=== PATIENT | female | born 1980 | race Caucasian/White ===

== ENCOUNTER 2016-07-03 | Outpatient (CLI) | payer MEDICARE, OTHER | END 2016-07-03 17:16 | disposition home or self-care (01) | CPT/HCPCS: 59025; G0463; 99213 ==

== ENCOUNTER 2017-10-21 08:27 | Emergency (ER) | payer MEDICARE, OTHER ==
[2017-10-21 08:31] VITALS: RESP 18; TEMP 98
[2017-10-21] MEDS ORDERED: SODIUM CHLORIDE 0.9% 1,000 ML IV STA (08:44)
[2017-10-21] MEDS ORDERED: ONDANSETRON 4 MG/2 ML VIAL IVP STA (08:44)
[2017-10-21 08:47] VITALS: PULSE 66
[2017-10-21 08:59] LABS: Basophils % (A) 1 %; Eosinophils # (A) 0.1 k/uL (0-0.7); Eosinophils % (A) 2 %; HCT 38.3 % (34.0-46.0); HGB 13.2 gm/dL (11.4-16.0); Lymphocytes % (A) 41 %; MCH 30.3 pg (25.0-35.0); MCHC 34.4 g/dL (31.0-37.0); MCV 88.2 fL (80.0-100.0); Mean Platelet Volume 7.2; Monocytes # (A) 0.4 k/uL (0-1.0); Monocytes % (A) 6 %; Neutrophils # (A) 3.6 k/uL (1.3-7.7); Neutrophils % (A) 49 %; Platelet Count 337 k/uL (150-450); RBC 4.34 m/uL (3.80-5.40); RDW 13.1 % (11.5-15.5); WBC 7.4 k/uL (3.8-10.6)
[2017-10-21 09:05] LABS: ALT 46 U/L (9-52); AST 54 U/L (14-36); Albumin 4.4 g/dL (3.5-5.0); Alkaline Phosphatase 78 U/L (38-126); Amylase 62 U/L (30-110); Anion Gap 13 mmol/L; Appearance,Urine Cloudy (Clear); Bacteria,Urine Rare /hpf; Bilirubin,Urine Negative (Negative); Blood Urea Nitrogen 10 mg/dL (7-17); Blood,Urine Negative (Negative); Calcium 9.2 mg/dL (8.4-10.2); Carbon Dioxide 25 mmol/L (22-30); Chloride 103 mmol/L (98-107); Color,Urine Yellow; Glucose 93 mg/dL (74-99); Glucose,Urine (UA) Negative (Negative); Ketones,Urine Negative (Negative); Leukocyte Esterase,Urine Small (Negative); Lipase 80 U/L (23-300); Mucus,Urine Rare /hpf; Nitrite,Urine Negative (Negative); PH, Urine 7.5 (5.0-8.0); Potassium 4.1 mmol/L (3.5-5.1); Protein,Urine Negative (Negative); RBC,Urine 1 /hpf (0-5); Sodium 141 mmol/L (137-145); Specific Gravity,Urine 1.016 (1.001-1.035); Squamous Epithelial Cell,Urine 12 /hpf (0-4); Total Bilirubin 0.6 mg/dL (0.2-1.3); Total Protein 7.8 g/dL (6.3-8.2); WBC,Urine 2 /hpf (0-5)
[2017-10-21 09:55] VITALS: BP 123/74
--- NOTE | 2017-10-21 10:16 | ED ---
Nausea/Vomiting/Diarrhea HPI - General Chief complaint: Nausea/Vomiting/Diarrhea Stated complaint: Nausea & Shaky Time Seen by Provider: 10/21/17 08:43 Source: patient, RN notes reviewed Mode of arrival: ambulatory Limitations: no limitations - History of Present Illness Initial comments: 37-year-old female presented to the emergency department for nausea, shakiness. Patient states she woke up felt shaky and states that she vomited. She's been having these symptoms on and off. She was told to follow-up with her PCP but has not followed up. She does have a history of hypothyroidism and states that she stopped her medication prostate 3 years ago. Patient denies any known fever, chills, chest pain, shortness breath, abdominal pain. Patient has no current headache. She states she felt lightheaded earlier. Patient denies any focal weakness. Patient states she feels improved now even prior to coming to the emergency Department. - Related Data Previous Rx's Medication Instructions Recorded Ondansetron Odt [Zofran Odt] 4 mg PO Q8HR PRN #10 tab 10/21/17 Allergies Allergy/AdvReac Type Severity Reaction Status Date / Time No Known Allergies Allergy Verified 10/21/17 09:48 Review of Systems ROS Statement: Those systems with pertinent positive or pertinent negative responses have been documented in the HPI. ROS Other: All systems not noted in ROS Statement are negative. Past Medical History Past Medical History: Hypertension History of Any Multi-Drug Resistant Organisms: None Reported Past Surgical History: No Surgical Hx Reported Past Psychological History: Bipolar, Depression Smoking Status: Current every day smoker Past Alcohol Use History: None Reported Past Drug Use History: None Reported General Exam Limitations: no limitations General appearance: alert, in no apparent distress Head exam: Present: atraumatic, normocephalic, normal inspection Eye exam: Present: normal appearance, PERRL, EOMI. Absent: scleral icterus, conjunctival injection, periorbital swelling ENT exam: Present: normal exam, normal oropharynx, mucous membranes moist Neck exam: Present: normal inspection. Absent: tenderness, meningismus, lymphadenopathy Respiratory exam: Present: normal lung sounds bilaterally. Absent: respiratory distress, wheezes, rales, rhonchi, stridor Cardiovascular Exam: Present: regular rate (Heart rate 62 on exam), normal rhythm, normal heart sounds. Absent: systolic murmur, diastolic murmur, rubs, gallop, clicks GI/Abdominal exam: Present: soft, normal bowel sounds. Absent: distended, tenderness, guarding, rebound, rigid Extremities exam: Present: other (Normal strength and full range of motion of all extremities no tremor) Neurological exam: Present: alert, oriented X3, CN II-XII intact, reflexes normal, other (Finger to nose intact bilaterally without over shooting normal Romberg). Absent: motor sensory deficit Skin exam: Present: warm, dry, intact, normal color. Absent: rash Course Vital Signs 10/21/17 10/21/17 10/21/17 08:27 08:44 09:53 Temperature 98 F 98 F Pulse Rate 41 L 66 66 Respiratory 18 18 Rate Blood Pressure 146/70 123/74 O2 Sat by Pulse 94 L 99 97 Oximetry Medical Decision Making - Medical Decision Making 29-year-old female presented for nausea, vomiting shaky. Patient was improved prior to even come the emergency department. Patient was hydrated given antiemetics. Patient had lab work which is unremarkable. There is no evidence of dehydration, electrolyte imbalances, hyperthyroidism. Patient may have had a hypoglycemic event as his hadn't been recurrent. Patient we discharged with Zofran for her nausea. She does state that she feels improved. She is advised follow-up with PCP tomorrow return for any worsening symptoms. - Lab Data Result diagrams: 10/21/17 08:40 10/21/17 08:40 Lab Results 10/21/17 10/21/17 10/21/17 Range/Units 08:40 08:40 08:40 WBC 7.4 (3.8-10.6) k/uL RBC 4.34 (3.80-5.40) m/uL Hgb 13.2 (11.4-16.0) gm/dL Hct 38.3 (34.0-46.0) % MCV 88.2 (80.0-100.0) fL MCH 30.3 (25.0-35.0) pg MCHC 34.4 (31.0-37.0) g/dL RDW 13.1 (11.5-15.5) % Plt Count 337 (150-450) k/uL Neutrophils % 49 % Lymphocytes % 41 % Monocytes % 6 % Eosinophils % 2 % Basophils % 1 % Neutrophils # 3.6 (1.3-7.7) k/uL Lymphocytes # 3.0 (1.0-4.8) k/uL Monocytes # 0.4 (0-1.0) k/uL Eosinophils # 0.1 (0-0.7) k/uL Basophils # 0.0 (0-0.2) k/uL Sodium 141 (137-145) mmol/L Potassium 4.1 (3.5-5.1) mmol/L Chloride 103 (98-107) mmol/L Carbon Dioxide 25 (22-30) mmol/L Anion Gap 13 mmol/L BUN 10 (7-17) mg/dL Creatinine 0.61 (0.52-1.04) mg/dL Est GFR (CKD-EPI)AfAm >90 (>60 ml/min/1.73 sqM) Est GFR (CKD-EPI)NonAf >90 (>60 ml/min/1.73 sqM) Glucose 93 (74-99) mg/dL Calcium 9.2 (8.4-10.2) mg/dL Total Bilirubin 0.6 (0.2-1.3) mg/dL AST 54 H (14-36) U/L ALT 46 (9-52) U/L Alkaline Phosphatase 78 (38-126) U/L Total Protein 7.8 (6.3-8.2) g/dL Albumin 4.4 (3.5-5.0) g/dL Amylase 62 (30-110) U/L Lipase 80 (23-300) U/L TSH (0.465-4.680) mIU/L Urine Color Urine Appearance (Clear) Urine pH (5.0-8.0) Ur Specific [place] (1.001-1.035) Urine Protein (Negative) Urine Glucose (UA) (Negative) Urine Ketones (Negative) Urine Blood (Negative) Urine Nitrite (Negative) Urine Bilirubin (Negative) Urine Urobilinogen (<2.0) mg/dL Ur Leukocyte Esterase (Negative) Urine RBC (0-5) /hpf Urine WBC (0-5) /hpf Ur Squamous Epith Cells (0-4) /hpf Urine Bacteria (None) /hpf Urine Mucus (None) /hpf Urine HCG, Qual Not Detected (Not Detectd) 10/21/17 10/21/17 Range/Units 08:40 08:40 WBC (3.8-10.6) k/uL RBC (3.80-5.40) m/uL Hgb (11.4-16.0) gm/dL Hct (34.0-46.0) % MCV (80.0-100.0) fL MCH (25.0-35.0) pg MCHC (31.0-37.0) g/dL RDW (11.5-15.5) % Plt Count (150-450) k/uL Neutrophils % % Lymphocytes % % Monocytes % % Eosinophils % % Basophils % % Neutrophils # (1.3-7.7) k/uL Lymphocytes # (1.0-4.8) k/uL Monocytes # (0-1.0) k/uL Eosinophils # (0-0.7) k/uL Basophils # (0-0.2) k/uL Sodium (137-145) mmol/L Potassium (3.5-5.1) mmol/L Chloride (98-107) mmol/L Carbon Dioxide (22-30) mmol/L Anion Gap mmol/L BUN (7-17) mg/dL Creatinine (0.52-1.04) mg/dL Est GFR (CKD-EPI)AfAm (>60 ml/min/1.73 sqM) Est GFR (CKD-EPI)NonAf (>60 ml/min/1.73 sqM) Glucose (74-99) mg/dL Calcium (8.4-10.2) mg/dL Total Bilirubin (0.2-1.3) mg/dL AST (14-36) U/L ALT (9-52) U/L Alkaline Phosphatase (38-126) U/L Total Protein (6.3-8.2) g/dL Albumin (3.5-5.0) g/dL Amylase (30-110) U/L Lipase (23-300) U/L TSH 1.650 (0.465-4.680) mIU/L Urine Color Yellow Urine Appearance Cloudy H (Clear) Urine pH 7.5 (5.0-8.0) Ur Specific [place] 1.016 (1.001-1.035) Urine Protein Negative (Negative) Urine Glucose (UA) Negative (Negative) Urine Ketones Negative (Negative) Urine Blood Negative (Negative) Urine Nitrite Negative (Negative) Urine Bilirubin Negative (Negative) Urine Urobilinogen 2.0 (<2.0) mg/dL Ur Leukocyte Esterase Small H (Negative) Urine RBC 1 (0-5) /hpf Urine WBC 2 (0-5) /hpf Ur Squamous Epith Cells 12 H (0-4) /hpf Urine Bacteria Rare H (None) /hpf Urine Mucus Rare H (None) /hpf Urine HCG, Qual (Not Detectd) Disposition Clinical Impression: Nausea & vomiting Disposition: HOME SELF-CARE Condition: Stable Instructions: Acute Nausea and Vomiting (ED) Additional Instructions: Please return to the Emergency Department if symptoms worsen or any other concerns. Prescriptions: Ondansetron Odt [Zofran Odt] 4 mg PO Q8HR PRN #10 tab PRN Reason: Nausea Is patient prescribed a controlled substance at d/c from ED?: No Referrals: Annemarie Mcdaniel MD [Primary Care Provider] - 1-2 days Time of Disposition: 10:14
== END 2017-10-21 10:24 | disposition home or self-care (01) ==
LOC: EC 08:27
DX: R11.2 Nausea with vomiting, unspecified (principal); R25.9 Unspecified abnormal involuntary movements; F17.200 Nicotine dependence, unspecified, uncomplicated
CPT/HCPCS: 36415; 80053; 84443; 82150; 83690; 85025; 81001; 81025; 99284; 96374; 96361; J2405

== ENCOUNTER 2017-12-19 04:37 | Emergency (ER) | payer MEDICARE, OTHER ==
--- NOTE | 2017-12-19 07:35 | ED ---
ENT HPI - General Chief complaint: Dental/Oral Stated complaint: Dental Pain Time Seen by Provider: 12/19/17 07:12 Source: patient Mode of arrival: ambulatory Limitations: no limitations - History of Present Illness Initial comments: 37 years old female presents with the dental pain she had a 16th extracted on Saturday for from the water and pre-molar area on the left upper jaw where she was brushing she injured that area and she took Motrin at 3 AM today, there is no bleeding him a no fever no chills no purulent drainage from the area of mild left cheek swelling. - Related Data Previous Rx's Medication Instructions Recorded Ondansetron Odt [Zofran Odt] 4 mg PO Q8HR PRN #10 tab 10/21/17 Amoxicillin 500 mg PO Q8H #21 capsule 12/19/17 traMADol HCL [Ultram] 50 mg PO Q8H #10 tab 12/19/17 Allergies Allergy/AdvReac Type Severity Reaction Status Date / Time No Known Allergies Allergy Verified 12/19/17 05:01 Review of Systems ROS Statement: Those systems with pertinent positive or pertinent negative responses have been documented in the HPI. ROS Other: All systems not noted in ROS Statement are negative. Past Medical History Past Medical History: Hypertension History of Any Multi-Drug Resistant Organisms: None Reported Past Surgical History: No Surgical Hx Reported Past Psychological History: Bipolar, Depression Smoking Status: Current every day smoker Past Alcohol Use History: None Reported Past Drug Use History: None Reported General Exam - General Exam Comments Initial Comments: General: The patient is awake and alert, in no distress, and does not appear acutely ill. Skin: Skin is warm and dry and no rashes or lesions are noted. Eye: Pupils are equal, round and reactive to light, extra-ocular movements are intact; there is normal conjunctiva bilaterally. Ears, nose, mouth and throat: Neck: The neck is supple, there is no tenderness or JVD. Upper jaw region of full motor and premolar there are multiple extractions noticed some whitish to positive the base of one of them gums around her swollen seems very infected and inflamed Cardiovascular: There is a regular rate and rhythm. No murmur, rub or gallop is appreciated. Respiratory: To auscultation bilateral, no wheezing no rhonchi no distress respiratory osman noticed Gastrointestinal: Soft, non-distended, non-tender abdomen without masses or organomegaly noted. There is no rebound or guarding present. Bowel sounds are unremarkable. Back: There is no tenderness to palpation in the midline. There is no obvious deformity. Musculoskeletal: Normal ROM, no tenderness, There is no pedal edema. There is no calf tenderness or swelling. No cords were appreciated. Neurological: CN II-XII intact, Cranial nerves III through XII are intact. There are no obvious motor or sensory deficits. Coordination appears grossly intact. Speech is normal. Psychiatric: Cooperative, appropriate mood & affect, normal judgment. Limitations: no limitations Course Vital Signs 12/19/17 04:58 Temperature 98.4 F Pulse Rate 66 Respiratory 16 Rate Blood Pressure 143/91 O2 Sat by Pulse 95 Oximetry She'll be given now Augmentin 500 mg by mouth now and then she be sent home 5 mg 3 times a day for next 7 days, since she is driving no narcotics be appropriate last Motrin she had that was 3 AM she will be given a 1 g of Tylenol by mouth considering she is driving and tramadol 50 mg 3 times a day #10 Disposition Clinical Impression: Gingivitis Disposition: HOME SELF-CARE Instructions: Toothache (ED) Additional Instructions: She is advised to go back to the dentist she seen on Saturday for the 6H extraction she agreed with the Prescriptions: Amoxicillin 500 mg PO Q8H #21 capsule traMADol HCL [Ultram] 50 mg PO Q8H #10 tab Is patient prescribed a controlled substance at d/c from ED?: Yes When asked, does pt state using other controlled substances?: No If prescribed controlled substance>3 days was MAPS reviewed?: No If opioid is for acute pain is fill amount 7 days or less?: Yes If Rx opioid, was Start Talking consent form obtained?: Yes Referrals: Ana Skaggs MD [Primary Care Provider] - 1-2 days
[2017-12-19] MEDS ORDERED: ACETAMINOPHEN TAB 500 MG TAB PO STA (07:40)
[2017-12-19 07:56] VITALS: BP 142/87; PULSE 63; RESP 18; TEMP 98.2
== END 2017-12-19 07:56 | disposition home or self-care (01) ==
LOC: EC 04:37 → SUPCPDRO 04:37 → EC 07:56
DX: K05.10 Chronic gingivitis, plaque induced (principal); K08.40 Partial loss of teeth, unspecified cause; F17.200 Nicotine dependence, unspecified, uncomplicated
CPT/HCPCS: 99282

== ENCOUNTER 2018-01-01 09:45 | Emergency (ER) | payer MEDICARE, OTHER ==
[2018-01-01 10:13] VITALS: RESP 18; TEMP 98.4
[2018-01-01] MEDS ORDERED: SODIUM CHLORIDE 0.9% 1,000 ML IV STA (10:32)
--- NOTE | 2018-01-01 10:35 | ED ---
General Adult HPI - General Chief complaint: Dizziness Stated complaint: N & V sen by ME Time Seen by Provider: 01/01/18 10:16 Source: patient, RN notes reviewed, old records reviewed Mode of arrival: ambulatory Limitations: no limitations - History of Present Illness Initial comments: 37-year-old female presents with multiple complaints. Patient was sent from [facility] for evaluation. Patient's chief complaint is headache which is been ongoing for the past several months. Has been intermittent and described as a bandlike sensation around the patient's head. Patient states she has no previous history of headaches. She states she's having one to 2 headaches per week which is accompanied with some lightheadedness. This morning she felt the symptoms again but also had some anterior chest pain. Patient has no history of coronary artery disease. She is a current smoker although she states that she is quitting. Remote history of heroin abuse currently on methadone. And history of hypertension taking lisinopril. Patient reports that her chest pain was anterior with some tightness. Denies any diaphoresis. No vomiting. No abdominal pain. No diarrhea. No fever or chills. Focal weakness or numbness. - Related Data Home Medications Medication Instructions Recorded Confirmed Lisinopril [Zestril] 5 mg PO DAILY 12/19/17 01/01/18 Albuterol Inhaler [Ventolin Hfa 2 puff INHALATION RT-Q6H PRN 01/01/18 01/01/18 Inhaler] Methadone 148mg 148 mg PO DAILY 01/01/18 01/01/18 Multivitamin,Therapeutic [Thera] 1 tab PO DAILY 01/01/18 01/01/18 Nicotine 21Mg/24Hr Patch [Habitrol 1 each TRANSDERM DAILY 01/01/18 01/01/18 21Mg/24Hr Patch] Allergies Allergy/AdvReac Type Severity Reaction Status Date / Time No Known Allergies Allergy Verified 01/01/18 11:01 Review of Systems ROS Statement: Those systems with pertinent positive or pertinent negative responses have been documented in the HPI. ROS Other: All systems not noted in ROS Statement are negative. Past Medical History Past Medical History: Hypertension History of Any Multi-Drug Resistant Organisms: None Reported Past Surgical History: No Surgical Hx Reported Past Psychological History: Bipolar, Depression Smoking Status: Former smoker Past Alcohol Use History: None Reported Past Drug Use History: None Reported General Exam Limitations: no limitations General appearance: alert, in no apparent distress Head exam: Present: atraumatic, normocephalic Eye exam: Present: normal appearance, PERRL ENT exam: Present: normal exam Neck exam: Present: normal inspection. Absent: tenderness, meningismus Respiratory exam: Present: normal lung sounds bilaterally. Absent: respiratory distress, wheezes Cardiovascular Exam: Present: regular rate, normal rhythm GI/Abdominal exam: Present: soft. Absent: distended, tenderness, guarding Extremities exam: Present: normal inspection, normal capillary refill. Absent: pedal edema Neurological exam: Present: alert, oriented X3, CN II-XII intact, other (No ataxia). Absent: motor sensory deficit Psychiatric exam: Present: normal affect, normal mood Skin exam: Present: warm, dry, intact. Absent: cyanosis, diaphoretic Course Vital Signs 01/01/18 01/01/18 10:09 12:13 Temperature 98.4 F Pulse Rate 65 65 Respiratory 18 18 Rate Blood Pressure 164/99 130/85 O2 Sat by Pulse 95 96 Oximetry EKG Findings - EKG Comments: EKG Findings:: EKG obtained at 1303, sinus rhythm with PVC no ST segment elevation, rate of 72, GA interval 132, QRS duration 92, QTC 424. EKG obtained at 1042, sinus rhythm with frequent PVC, rate of 64, GA interval 142, QRS duration 74, QTC 499, no ST segment elevation Medical Decision Making - Medical Decision Making 37-year-old female with multiple complaints including headache, lightheadedness , and chest pain. EKG shows no definitive signs of ischemia, normal CBC, negative troponin, and normal electrolytes. Urinalysis is negative. Chest x- ray negative for any acute cardio pulmonary disease, head CT is negative for intracranial hemorrhage or mass effect. On reevaluation, patient is chest pain- free, and headache free. She will follow-up with her primary care physician. - Lab Data Result diagrams: 01/01/18 10:56 01/01/18 10:56 Lab Results 01/01/18 01/01/18 01/01/18 Range/Units 10:56 10:56 10:56 WBC 7.4 (3.8-10.6) k/uL RBC 4.40 (3.80-5.40) m/uL Hgb 13.8 (11.4-16.0) gm/dL Hct 39.6 (34.0-46.0) % MCV 89.8 (80.0-100.0) fL MCH 31.4 (25.0-35.0) pg MCHC 35.0 (31.0-37.0) g/dL RDW 13.5 (11.5-15.5) % Plt Count 325 (150-450) k/uL Neutrophils % 42 % Lymphocytes % 48 % Monocytes % 5 % Eosinophils % 2 % Basophils % 1 % Neutrophils # 3.1 (1.3-7.7) k/uL Lymphocytes # 3.6 (1.0-4.8) k/uL Monocytes # 0.3 (0-1.0) k/uL Eosinophils # 0.2 (0-0.7) k/uL Basophils # 0.1 (0-0.2) k/uL PT (9.0-12.0) sec INR (<1.2) APTT (22.0-30.0) sec Sodium 139 (137-145) mmol/L Potassium 4.2 (3.5-5.1) mmol/L Chloride 103 (98-107) mmol/L Carbon Dioxide 25 (22-30) mmol/L Anion Gap 11 mmol/L BUN 10 (7-17) mg/dL Creatinine 0.74 (0.52-1.04) mg/dL Est GFR (CKD-EPI)AfAm >90 (>60 ml/min/1.73 sqM) Est GFR (CKD-EPI)NonAf >90 (>60 ml/min/1.73 sqM) Glucose 85 (74-99) mg/dL Calcium 9.2 (8.4-10.2) mg/dL Magnesium 1.8 (1.6-2.3) mg/dL Total Bilirubin 0.5 (0.2-1.3) mg/dL AST 59 H (14-36) U/L ALT 57 H (9-52) U/L Alkaline Phosphatase 69 (38-126) U/L Total Creatine Kinase 72 (30-135) U/L CK-MB (CK-2) 0.8 (0.0-2.4) ng/mL CK-MB (CK-2) Rel Index 1.1 Troponin I <0.012 (0.000-0.034) ng/mL Total Protein 8.1 (6.3-8.2) g/dL Albumin 4.6 (3.5-5.0) g/dL Urine Color Urine Appearance (Clear) Urine pH (5.0-8.0) Ur Specific [place] (1.001-1.035) Urine Protein (Negative) Urine Glucose (UA) (Negative) Urine Ketones (Negative) Urine Blood (Negative) Urine Nitrite (Negative) Urine Bilirubin (Negative) Urine Urobilinogen (<2.0) mg/dL Ur Leukocyte Esterase (Negative) Urine RBC (0-5) /hpf Urine WBC (0-5) /hpf Ur Squamous Epith Cells (0-4) /hpf Urine Bacteria (None) /hpf Urine HCG, Qual (Not Detectd) 01/01/18 01/01/18 01/01/18 Range/Units 10:56 10:56 10:56 WBC (3.8-10.6) k/uL RBC (3.80-5.40) m/uL Hgb (11.4-16.0) gm/dL Hct (34.0-46.0) % MCV (80.0-100.0) fL MCH (25.0-35.0) pg MCHC (31.0-37.0) g/dL RDW (11.5-15.5) % Plt Count (150-450) k/uL Neutrophils % % Lymphocytes % % Monocytes % % Eosinophils % % Basophils % % Neutrophils # (1.3-7.7) k/uL Lymphocytes # (1.0-4.8) k/uL Monocytes # (0-1.0) k/uL Eosinophils # (0-0.7) k/uL Basophils # (0-0.2) k/uL PT 10.2 (9.0-12.0) sec INR 1.0 (<1.2) APTT 26.9 (22.0-30.0) sec Sodium (137-145) mmol/L Potassium (3.5-5.1) mmol/L Chloride (98-107) mmol/L Carbon Dioxide (22-30) mmol/L Anion Gap mmol/L BUN (7-17) mg/dL Creatinine (0.52-1.04) mg/dL Est GFR (CKD-EPI)AfAm (>60 ml/min/1.73 sqM) Est GFR (CKD-EPI)NonAf (>60 ml/min/1.73 sqM) Glucose (74-99) mg/dL Calcium (8.4-10.2) mg/dL Magnesium (1.6-2.3) mg/dL Total Bilirubin (0.2-1.3) mg/dL AST (14-36) U/L ALT (9-52) U/L Alkaline Phosphatase (38-126) U/L Total Creatine Kinase (30-135) U/L CK-MB (CK-2) (0.0-2.4) ng/mL CK-MB (CK-2) Rel Index Troponin I (0.000-0.034) ng/mL Total Protein (6.3-8.2) g/dL Albumin (3.5-5.0) g/dL Urine Color Yellow Urine Appearance Clear (Clear) Urine pH 6.5 (5.0-8.0) Ur Specific [place] 1.014 (1.001-1.035) Urine Protein Negative (Negative) Urine Glucose (UA) Negative (Negative) Urine Ketones Negative (Negative) Urine Blood Negative (Negative) Urine Nitrite Negative (Negative) Urine Bilirubin Negative (Negative) Urine Urobilinogen 2.0 (<2.0) mg/dL Ur Leukocyte Esterase Small H (Negative) Urine RBC 1 (0-5) /hpf Urine WBC 3 (0-5) /hpf Ur Squamous Epith Cells 7 H (0-4) /hpf Urine Bacteria Rare H (None) /hpf Urine HCG, Qual Not Detected (Not Detectd) Disposition Clinical Impression: Dehydration, Headache Disposition: HOME SELF-CARE Condition: Good Instructions: Acute Headache (ED), Chest Pain (ED) Is patient prescribed a controlled substance at d/c from ED?: No Referrals: Annemarie Mcdaniel MD [Primary Care Provider] - 1-2 days Time of Disposition: 13:14
[2018-01-01 11:11] LABS: Basophils # (A) 0.1 k/uL (0-0.2); Basophils % (A) 1 %; Eosinophils # (A) 0.2 k/uL (0-0.7); Eosinophils % (A) 2 %; HCT 39.6 % (34.0-46.0); HGB 13.8 gm/dL (11.4-16.0); Lymphocytes # (A) 3.6 k/uL (1.0-4.8); Lymphocytes % (A) 48 %; MCH 31.4 pg (25.0-35.0); MCV 89.8 fL (80.0-100.0); Mean Platelet Volume 6.8; Monocytes # (A) 0.3 k/uL (0-1.0); Monocytes % (A) 5 %; Neutrophils # (A) 3.1 k/uL (1.3-7.7); Neutrophils % (A) 42 %; Platelet Count 325 k/uL (150-450); RDW 13.5 % (11.5-15.5); WBC 7.4 k/uL (3.8-10.6)
[2018-01-01 11:17] LABS: Appearance,Urine Clear (Clear); Bacteria,Urine Rare /hpf; Bilirubin,Urine Negative (Negative); Blood,Urine Negative (Negative); Color,Urine Yellow; Glucose,Urine (UA) Negative (Negative); Ketones,Urine Negative (Negative); Leukocyte Esterase,Urine Small (Negative); Nitrite,Urine Negative (Negative); PH, Urine 6.5 (5.0-8.0); Protein,Urine Negative (Negative); RBC,Urine 1 /hpf (0-5); Specific Gravity,Urine 1.014 (1.001-1.035); Squamous Epithelial Cell,Urine 7 /hpf (0-4); WBC,Urine 3 /hpf (0-5)
[2018-01-01 11:19] LABS: Partial Thromboplastin Time 26.9 sec (22.0-30.0); Prothrombin Time 10.2 sec (9.0-12.0)
[2018-01-01 11:26] LABS: ALT 57 U/L (9-52); AST 59 U/L (14-36); Albumin 4.6 g/dL (3.5-5.0); Alkaline Phosphatase 69 U/L (38-126); Anion Gap 11 mmol/L; Blood Urea Nitrogen 10 mg/dL (7-17); Calcium 9.2 mg/dL (8.4-10.2); Carbon Dioxide 25 mmol/L (22-30); Chloride 103 mmol/L (98-107); Glucose 85 mg/dL (74-99); Magnesium 1.8 mg/dL (1.6-2.3); Potassium 4.2 mmol/L (3.5-5.1); Sodium 139 mmol/L (137-145); Total Bilirubin 0.5 mg/dL (0.2-1.3); Total Protein 8.1 g/dL (6.3-8.2)
--- NOTE | 2018-01-01 11:40 | XR ---
EXAMINATION TYPE: XR chest 2V DATE OF EXAM: 01/01/2018 COMPARISON: NONE HISTORY: Chest pain TECHNIQUE: Frontal and lateral views of the chest are obtained. FINDINGS: There is no focal air space opacity. No evidence for pneumothorax. No pleural effusion. The cardiac silhouette size is within normal limits. The osseous structures are grossly intact. IMPRESSION: 1. No acute cardiopulmonary process.
[2018-01-01 11:49] LABS: Creatine Kinase 72 U/L (30-135)
[2018-01-01 12:00] LABS: Creatine Kinase MB 0.8 ng/mL (0.0-2.4); Troponin I <0.012 ng/mL (0.000-0.034)
--- NOTE | 2018-01-01 12:42 | CT ---
EXAMINATION TYPE: CT brain wo con DATE OF EXAM: 01/01/2018 COMPARISON: None HISTORY: Headache with nausea and vomiting. No known injury CT DLP: 978.[address] of the brain was performed. The ventricles, basal cisterns and sulci overlying the cerebral convexities demonstrate a normal appe arance. There is no evidence for intracranial hemorrhage or sulcal effacement. No mass effects are seen. Osseous calvarium is intact. If symptoms persist consider MRI as clinically warranted. IMPRESSION: 1. No acute intracranial process is seen at this time.
[2018-01-01 13:25] VITALS: BP 149/89; PULSE 59
== END 2018-01-01 13:24 | disposition home or self-care (01) ==
LOC: EC 09:45
DX: E86.0 Dehydration (principal); R51 Headache; R07.89 Other chest pain; R42 Dizziness and giddiness; I10 Essential (primary) hypertension; Z87.891 Personal history of nicotine dependence; Z79.899 Other long term (current) drug therapy
CPT/HCPCS: 36415; 70450; 71046; 80053; 81001; 81025; 82550; 82553; 83735; 84484; 85025; 85610; 85730; 93005; 96360; 99285

== ENCOUNTER 2018-12-22 18:57 | Emergency (ER) | payer MEDICARE, OTHER ==
[2018-12-22] MEDS ORDERED: hydrALAZINE HCL 20 MG/ML 1 ML VIAL IVP STA (21:13)
--- NOTE | 2018-12-22 21:18 | ED ---
General Adult HPI - General Chief complaint: Recheck/Abnormal Lab/Rx Stated complaint: High BP Time Seen by Provider: 12/22/18 20:49 Source: patient Mode of arrival: ambulatory Limitations: no limitations - History of Present Illness Initial comments: This patient is a 38-year-old woman who presents because she has concerns about high blood pressure. She states she has history of high blood pressure and had been taking lisinopril. She states that she then became and she was taken off the lisinopril. She had been maintained on labetalol but states that following delivery there were concerns about her becoming bradycardic so that was stopped. She had a normal delivery on November 28, 2018. The patient states that she was subsequently discharged without any antihypertensives. She states that at the time of discharge her diastolic blood pressure was around 109, she did not know systolic blood pressure. She states that she is recently been checking her blood pressure and is very high. The patient states she thinks that it may be contributing that her methadone dose was recently decreased. She states she had been taking 158 milligrams per day, but for the past 2 days the clinic changed her to 80 mg per day. She does feel a bit anxious. She denies any other symptoms. She is not having any chest or abdominal pain. No headach e. No dyspnea. No nausea or vomiting. Patient denies leg swelling. -: days(s) Severity scale (1-10): 0 Improves with: none Worsens with: none Associated Symptoms: other (Anxiety) Treatments Prior to Arrival: none - Related Data Home Medications Medication Instructions Recorded Confirmed Lisinopril [Zestril] 2.5 mg PO DIRECTED 12/22/18 12/22/18 Methadone 80mg 80 mg PO DAILY 12/22/18 12/22/18 Previous Rx's Medication Instructions Recorded Lisinopril [Zestril] 5 mg PO DAILY #14 tab 12/22/18 hydrALAZINE HCL 25 mg PO Q6H #28 tablet 12/22/18 Allergies Allergy/AdvReac Type Severity Reaction Status Date / Time No Known Allergies Allergy Verified 12/22/18 20:51 Review of Systems ROS Statement: Those systems with pertinent positive or pertinent negative responses have been documented in the HPI. ROS Other: All systems not noted in ROS Statement are negative. Constitutional: Denies: fever, chills Respiratory: Denies: cough, dyspnea Cardiovascular: Denies: chest pain, palpitations, orthopnea, edema Gastrointestinal: Denies: abdominal pain, nausea, vomiting Genitourinary: Denies: dysuria, hematuria Musculoskeletal: Denies: back pain Skin: Denies: rash Neurological: Denies: headache, weakness, numbness Psychiatric: Reports: anxiety. Denies: suicidal thoughts Past Medical History Past Medical History: Hypertension History of Any Multi-Drug Resistant Organisms: None Reported Past Surgical History: No Surgical Hx Reported Past Psychological History: Bipolar, Depression Smoking Status: Former smoker Past Alcohol Use History: None Reported Past Drug Use History: None Reported General Exam Limitations: no limitations General appearance: alert, in no apparent distress Head exam: Present: atraumatic, normocephalic Eye exam: Present: normal appearance. Absent: scleral icterus, conjunctival injection ENT exam: Present: normal oropharynx Respiratory exam: Present: normal lung sounds bilaterally. Absent: respiratory distress, wheezes, rales, rhonchi, stridor Cardiovascular Exam: Present: regular rate, normal rhythm, normal heart sounds. Absent: systolic murmur, diastolic murmur, rubs, gallop GI/Abdominal exam: Present: soft. Absent: distended, tenderness, guarding, rebound, rigid, mass Extremities exam: Present: normal inspection, normal capillary refill. Absent: pedal edema, calf tenderness Back exam: Present: normal inspection. Absent: CVA tenderness (R), CVA tenderness (L) Neurological exam: Present: alert, reflexes normal Skin exam: Present: warm, dry, intact, normal color. Absent: rash Course Vital Signs 12/22/18 12/22/18 12/22/18 20:05 21:43 22:12 Temperature 98.3 F Pulse Rate 69 69 73 Respiratory 18 20 18 Rate Blood Pressure 218/109 172/113 144/81 O2 Sat by Pulse 99 99 96 Oximetry 12/22/18 22:46 Temperature Pulse Rate 82 Respiratory 18 Rate Blood Pressure 141/87 O2 Sat by Pulse 95 Oximetry Medical Decision Making - Medical Decision Making Case discussed with Dr. Blum, regarding preeclampsia. Given that the patient is asymptomatic and workup is unremarkable, suspect that this is more related to the cut in her methadone dosing, and the fact that the patient has history of hypertension which is currently untreated. Given the elevated blood pressure will start with hydralazine, have the patient follow with her primary physician and have close monitoring of her blood pressure. - Lab Data Result diagrams: 12/22/18 21:43 12/22/18 21:43 Lab Results 12/22/18 12/22/18 12/22/18 Range/Units 21:43 21:43 21:43 WBC 7.7 (3.8-10.6) k/uL RBC 4.65 (3.80-5.40) m/uL Hgb 14.6 (11.4-16.0) gm/dL Hct 42.7 (34.0-46.0) % MCV 91.7 (80.0-100.0) fL MCH 31.3 (25.0-35.0) pg MCHC 34.1 (31.0-37.0) g/dL RDW 12.3 (11.5-15.5) % Plt Count 359 (150-450) k/uL Neutrophils % 52 % Lymphocytes % 38 % Monocytes % 5 % Eosinophils % 2 % Basophils % 1 % Neutrophils # 4.0 (1.3-7.7) k/uL Lymphocytes # 2.9 (1.0-4.8) k/uL Monocytes # 0.4 (0-1.0) k/uL Eosinophils # 0.1 (0-0.7) k/uL Basophils # 0.0 (0-0.2) k/uL Sodium 140 (137-145) mmol/L Potassium 3.9 (3.5-5.1) mmol/L Chloride 100 (98-107) mmol/L Carbon Dioxide 29 (22-30) mmol/L Anion Gap 11 mmol/L BUN 10 (7-17) mg/dL Creatinine 0.68 (0.52-1.04) mg/dL Est GFR (CKD-EPI)AfAm >90 (>60 ml/min/1.73 sqM) Est GFR (CKD-EPI)NonAf >90 (>60 ml/min/1.73 sqM) Glucose 94 (74-99) mg/dL Uric Acid 5.3 (3.7-7.4) mg/dL Calcium 9.7 (8.4-10.2) mg/dL Total Bilirubin 0.5 (0.2-1.3) mg/dL AST 44 H (14-36) U/L ALT 36 (9-52) U/L Alkaline Phosphatase 91 (38-126) U/L Total Protein 7.5 (6.3-8.2) g/dL Albumin 4.3 (3.5-5.0) g/dL Urine Color Urine Appearance (Clear) Urine pH (5.0-8.0) Ur Specific [place] (1.001-1.035) Urine Protein (Negative) Urine Glucose (UA) (Negative) Urine Ketones (Negative) Urine Blood (Negative) Urine Nitrite (Negative) Urine Bilirubin (Negative) Urine Urobilinogen (<2.0) mg/dL Ur Leukocyte Esterase (Negative) Urine RBC (0-5) /hpf Urine WBC (0-5) /hpf Ur Squamous Epith Cells (0-4) /hpf Urine HCG, Qual Not Detected (Not Detectd) 12/22/18 Range/Units 21:43 WBC (3.8-10.6) k/uL RBC (3.80-5.40) m/uL Hgb (11.4-16.0) gm/dL Hct (34.0-46.0) % MCV (80.0-100.0) fL MCH (25.0-35.0) pg MCHC (31.0-37.0) g/dL RDW (11.5-15.5) % Plt Count (150-450) k/uL Neutrophils % % Lymphocytes % % Monocytes % % Eosinophils % % Basophils % % Neutrophils # (1.3-7.7) k/uL Lymphocytes # (1.0-4.8) k/uL Monocytes # (0-1.0) k/uL Eosinophils # (0-0.7) k/uL Basophils # (0-0.2) k/uL Sodium (137-145) mmol/L Potassium (3.5-5.1) mmol/L Chloride (98-107) mmol/L Carbon Dioxide (22-30) mmol/L Anion Gap mmol/L BUN (7-17) mg/dL Creatinine (0.52-1.04) mg/dL Est GFR (CKD-EPI)AfAm (>60 ml/min/1.73 sqM) Est GFR (CKD-EPI)NonAf (>60 ml/min/1.73 sqM) Glucose (74-99) mg/dL Uric Acid (3.7-7.4) mg/dL Calcium (8.4-10.2) mg/dL Total Bilirubin (0.2-1.3) mg/dL AST (14-36) U/L ALT (9-52) U/L Alkaline Phosphatase (38-126) U/L Total Protein (6.3-8.2) g/dL Albumin (3.5-5.0) g/dL Urine Color Light Yellow Urine Appearance Clear (Clear) Urine pH 6.5 (5.0-8.0) Ur Specific [place] 1.005 (1.001-1.035) Urine Protein Negative (Negative) Urine Glucose (UA) Negative (Negative) Urine Ketones Negative (Negative) Urine Blood Small H (Negative) Urine Nitrite Negative (Negative) Urine Bilirubin Negative (Negative) Urine Urobilinogen <2.0 (<2.0) mg/dL Ur Leukocyte Esterase Large H (Negative) Urine RBC 1 (0-5) /hpf Urine WBC 25 H (0-5) /hpf Ur Squamous Epith Cells <1 (0-4) /hpf Urine HCG, Qual (Not Detectd) Disposition Clinical Impression: Hypertension Disposition: HOME SELF-CARE Condition: Good Instructions (If sedation given, give patient instructions): Hypertension (ED) Prescriptions: hydrALAZINE HCL 25 mg PO Q6H #28 tablet Lisinopril [Zestril] 5 mg PO DAILY #14 tab Is patient prescribed a controlled substance at d/c from ED?: No Referrals: None,Stated [Primary Care Provider] - 1-2 days
[2018-12-22 22:05] LABS: Basophils % (A) 1 %; Eosinophils # (A) 0.1 k/uL (0-0.7); Eosinophils % (A) 2 %; HCT 42.7 % (34.0-46.0); HGB 14.6 gm/dL (11.4-16.0); Lymphocytes # (A) 2.9 k/uL (1.0-4.8); Lymphocytes % (A) 38 %; MCH 31.3 pg (25.0-35.0); MCHC 34.1 g/dL (31.0-37.0); MCV 91.7 fL (80.0-100.0); Mean Platelet Volume 6.5; Monocytes # (A) 0.4 k/uL (0-1.0); Monocytes % (A) 5 %; Neutrophils % (A) 52 %; Platelet Count 359 k/uL (150-450); RBC 4.65 m/uL (3.80-5.40); RDW 12.3 % (11.5-15.5); WBC 7.7 k/uL (3.8-10.6)
[2018-12-22 22:06] LABS: Appearance,Urine Clear (Clear); Bilirubin,Urine Negative (Negative); Blood,Urine Small (Negative); Color,Urine Light Yellow; Glucose,Urine (UA) Negative (Negative); Ketones,Urine Negative (Negative); Leukocyte Esterase,Urine Large (Negative); Nitrite,Urine Negative (Negative); PH, Urine 6.5 (5.0-8.0); Protein,Urine Negative (Negative); RBC,Urine 1 /hpf (0-5); Specific Gravity,Urine 1.005 (1.001-1.035); Squamous Epithelial Cell,Urine <1 /hpf (0-4); Urobilinogen,Urine <2.0 mg/dL (<2.0); WBC,Urine 25 /hpf (0-5)
[2018-12-22 22:16] LABS: ALT 36 U/L (9-52); AST 44 U/L (14-36); African American GFR (CKD) >90 (>60 ml/min/1.73 sqM); Albumin 4.3 g/dL (3.5-5.0); Alkaline Phosphatase 91 U/L (38-126); Anion Gap 11 mmol/L; Blood Urea Nitrogen 10 mg/dL (7-17); Calcium 9.7 mg/dL (8.4-10.2); Carbon Dioxide 29 mmol/L (22-30); Chloride 100 mmol/L (98-107); Glucose 94 mg/dL (74-99); Potassium 3.9 mmol/L (3.5-5.1); Sodium 140 mmol/L (137-145); Total Bilirubin 0.5 mg/dL (0.2-1.3); Total Protein 7.5 g/dL (6.3-8.2); Uric Acid 5.3 mg/dL (3.7-7.4)
[2018-12-22 23:41] VITALS: BP 139/80; PULSE 64; RESP 16; TEMP 97.6
== END 2018-12-22 23:40 | disposition home or self-care (01) ==
LOC: EC 18:57
DX: I10 Essential (primary) hypertension (principal); F41.9 Anxiety disorder, unspecified; Z87.891 Personal history of nicotine dependence; Z79.891 Long term (current) use of opiate analgesic; Z79.899 Other long term (current) drug therapy
CPT/HCPCS: 36415; 80053; 84550; 85025; 81001; 81025; 99283; 96374; J0360

== ENCOUNTER 2019-03-17 10:09 | Emergency (ER) | payer MEDICARE, OTHER ==
[2019-03-17 10:33] VITALS: BP 143/88; PULSE 81; RESP 18; TEMP 98.6
[2019-03-17] MEDS ORDERED: AZITHROMYCIN 500 MG TAB PO STA (10:45)
[2019-03-17] MEDS ORDERED: metroNIDAZOLE 500 MG TAB PO STA (10:45)
[2019-03-17] MEDS ORDERED: cefTRIAXone 250 MG VIAL IM STA (10:45)
[2019-03-17] MEDS ORDERED: METOCLOPRAMIDE 10 MG TAB PO STA (10:46)
--- NOTE | 2019-03-17 10:48 | ED ---
General Adult HPI - General Chief complaint: Recheck/Abnormal Lab/Rx Stated complaint: Female Time Seen by Provider: 03/17/19 10:30 Source: patient, RN notes reviewed Mode of arrival: ambulatory Limitations: no limitations - History of Present Illness Initial comments: 38-year-old female with a past medical history hypertension presents to the emergency department for a chief complaint of possible STD. [place] she has had a foul-smelling odor from the vagina and has had some grayish drainage as well. Patient states that her had an affair and she is concerned she has an STD. Denies any pelvic pain. Denies any fevers or chills. Denies any chance of .Patient has no other complaints at this time including shortness of breath, chest pain, abdominal pain, nausea or vomiting, headache, or visual changes. - Related Data Home Medications Medication Instructions Recorded Confirmed Lisinopril 20 mg PO DAILY 03/17/19 03/17/19 Methadone HCl [Methadone Intensol] 95 mg PO QAM 03/17/19 03/17/19 amLODIPine [Norvasc] 5 mg PO DAILY 03/17/19 03/17/19 Previous Rx's Medication Instructions Recorded Nitrofurantoin Monohyd/M-Cryst 100 mg PO Q12H 7 Days #14 cap 03/17/19 [Macrobid] Allergies Allergy/AdvReac Type Severity Reaction Status Date / Time No Known Allergies Allergy Verified 03/17/19 10:42 Review of Systems ROS Statement: Those systems with pertinent positive or pertinent negative responses have been documented in the HPI. ROS Other: All systems not noted in ROS Statement are negative. Past Medical History Past Medical History: Hypertension Additional Past Medical History / Comment(s): syncope with noted bradycardia History of Any Multi-Drug Resistant Organisms: None Reported Past Surgical History: No Surgical Hx Reported Past Psychological History: Bipolar, Depression Smoking Status: Current some day smoker Past Alcohol Use History: None Reported Past Drug Use History: None Reported General Exam Limitations: no limitations General appearance: alert, in no apparent distress Head exam: Present: atraumatic, normocephalic, normal inspection Eye exam: Present: normal appearance, PERRL, EOMI. Absent: scleral icterus, conjunctival injection, periorbital swelling ENT exam: Present: normal exam, mucous membranes moist Neck exam: Present: normal inspection, full ROM. Absent: tenderness, meningismus, lymphadenopathy Respiratory exam: Present: normal lung sounds bilaterally. Absent: respiratory distress, wheezes, rales, rhonchi, stridor Cardiovascular Exam: Present: regular rate, normal rhythm, normal heart sounds. Absent: systolic murmur, diastolic murmur, rubs, gallop, clicks GI/Abdominal exam: Present: soft, normal bowel sounds. Absent: distended, tenderness, guarding, rebound, rigid External exam: Present: normal external exam. Absent: erythema, swelling, lesions, lacerations, ecchymosis Speculum exam: Present: cervical discharge (white thin). Absent: erythema, vaginal discharge, vaginal bleeding, foreign body, tissue, laceration By manual exam: Present: normal by manual exam. Absent: cervical motion tenderness, adnexal tenderness, adnexal mass, uterine enlargement, uterine tenderness Neurological exam: Present: alert Course Vital Signs 03/17/19 10:29 Temperature 98.6 F Pulse Rate 81 Respiratory 18 Rate Blood Pressure 143/88 O2 Sat by Pulse 95 Oximetry Medical Decision Making - Medical Decision Making 38-year-old female with a past medical history of hypertension presents for a chief complaint of possible STD. Patient states that this week she had a foul- smelling odor and some grayish discharge as well. Patient's has had an affair. Patient denies any pelvic pain. On exam there is no foul order but a white discharge noted. No cervical motion tenderness or adnexal tenderness. Gonorrhea chlamydia Trichomonas pending. Genital culture pending. Discussed empiric treatment and patient wishes to be treated for all 3 gonorrhea chlamydia Trichomonas. Patient does not want to wait for the Trichomonas results prior to being treated. Discussed fully upon culture results. Discussed returning if she has any worsening symptoms. I did contact patient by voicemail to tell her to call back about her Trichomonas results - Lab Data Lab Results 03/17/19 03/17/19 03/17/19 Range/Units 10:35 10:35 11:30 Urine Color Yellow Urine Appearance Cloudy H (Clear) Urine pH 6.0 (5.0-8.0) Ur Specific [place] 1.020 (1.001-1.035) Urine Protein Trace H (Negative) Urine Glucose (UA) Negative (Negative) Urine Ketones Negative (Negative) Urine Blood Trace H (Negative) Urine Nitrite Negative (Negative) Urine Bilirubin Negative (Negative) Urine Urobilinogen 3.0 (<2.0) mg/dL Ur Leukocyte Esterase Large H (Negative) Urine RBC 16 H (0-5) /hpf Urine WBC 104 H (0-5) /hpf Ur Squamous Epith Cells 5 H (0-4) /hpf Urine Mucus Rare H (None) /hpf Urine HCG, Qual Not Detected (Not Detectd) Trichomonas Ag (Rapid) Positive H (Negative) Disposition Clinical Impression: Vaginal discharge, Urinary tract infection Disposition: HOME SELF-CARE Condition: Good Instructions (If sedation given, give patient instructions): Vaginal Discharge (ED) Additional Instructions: Please follow up with culture results in 2-3 days. Please return to the emergency department if you have any worsening symptoms. Prescriptions: Nitrofurantoin Monohyd/M-Cryst [Macrobid] 100 mg PO Q12H 7 Days #14 cap Is patient prescribed a controlled substance at d/c from ED?: No Referrals: Sandrine Murray DO [Primary Care Provider] - 1-2 days Time of Disposition: 11:24
[2019-03-17 10:52] LABS: Appearance,Urine Cloudy (Clear); Bilirubin,Urine Negative (Negative); Blood,Urine Trace (Negative); Color,Urine Yellow; Glucose,Urine (UA) Negative (Negative); Ketones,Urine Negative (Negative); Leukocyte Esterase,Urine Large (Negative); Mucus,Urine Rare /hpf; Nitrite,Urine Negative (Negative); Protein,Urine Trace (Negative); RBC,Urine 16 /hpf (0-5); Squamous Epithelial Cell,Urine 5 /hpf (0-4); WBC,Urine 104 /hpf (0-5)
[2019-03-18 15:27] LABS: N. gonorrhoeae,PCR Negative (Neg,Equiv); Neisseria Source Vagina
[2019-03-18 15:43] LABS: C. trachomatis,PCR Negative (Neg,Equiv); Chlamydia trachomatis Source Vagina
== END 2019-03-17 11:30 | disposition home or self-care (01) ==
LOC: EC 10:09
DX: N39.0 Urinary tract infection, site not specified (principal); N89.8 Other specified noninflammatory disorders of vagina; I10 Essential (primary) hypertension; F17.200 Nicotine dependence, unspecified, uncomplicated; Z79.891 Long term (current) use of opiate analgesic; Z79.899 Other long term (current) drug therapy
CPT/HCPCS: 81001; 81025; 87808; 87491; 87591; 87070; 87086; 99283; 96372; J0696

== ENCOUNTER 2021-05-01 23:07 | Emergency (ER) | payer MEDICARE, OTHER ==
[2021-05-01 23:47] VITALS: TEMP 97.8
--- NOTE | 2021-05-02 00:59 | XR ---
EXAMINATION TYPE: XR chest 2V DATE OF EXAM: 05/02/2021 COMPARISON: NONE HISTORY: Cough TECHNIQUE: 2 views FINDINGS: There is some mild linear density at the left lung base. There is no heart failure. Heart a nd mediastinum are normal. IMPRESSION: Subsegmental atelectasis left lung base appears new compared to old exam. Normal heart
--- NOTE | 2021-05-02 01:54 | ED ---
General Adult HPI - General Chief complaint: Syncope Stated complaint: syncope Time Seen by Provider: 05/02/21 01:41 Source: patient Mode of arrival: EMS Limitations: no limitations - History of Present Illness Initial comments: This patient is a 40-year-old woman who presents with complaint that she was feeling lightheaded like she would pass out. The patient states that this evening she had gone to give her daughter some medicine. She started feeling lightheaded and her vision was a little funny. She felt hot and sweaty. She believes she was close to passing out. The patient was concerned that she may be coming down with covid as her family members have it. -: hour(s) Severity scale (1-10): 0 Consistency: constant Improves with: none Worsens with: movement Associated Symptoms: headaches, loss of appetite, weakness - Related Data Home Medications Medication Instructions Recorded Confirmed Methadone HCl [Methadone Intensol] 95 mg PO QAM 03/17/19 03/17/19 amLODIPine [Norvasc] 5 mg PO DAILY 03/17/19 03/17/19 lisinopriL 20 mg PO DAILY 03/17/19 03/17/19 Previous Rx's Medication Instructions Recorded Nitrofurantoin Monohyd/M-Cryst 100 mg PO Q12H 7 Days #14 cap 03/17/19 [Macrobid] Allergies Allergy/AdvReac Type Severity Reaction Status Date / Time No Known Allergies Allergy Verified 05/01/21 23:47 Review of Systems ROS Statement: Those systems with pertinent positive or pertinent negative responses have been documented in the HPI. ROS Other: All systems not noted in ROS Statement are negative. Constitutional: Reports: weakness. Denies: fever, chills Eyes: Denies: vision change Respiratory: Denies: cough, dyspnea Cardiovascular: Denies: chest pain, palpitations, orthopnea, edema, syncope Gastrointestinal: Denies: abdominal pain, vomiting, diarrhea Genitourinary: Denies: dysuria, hematuria Musculoskeletal: Denies: back pain Skin: Denies: rash Neurological: Denies: headache, weakness Past Medical History Past Medical History: Hypertension Additional Past Medical History / Comment(s): syncope with noted bradycardia History of Any Multi-Drug Resistant Organisms: None Reported Past Surgical History: No Surgical Hx Reported Past Psychological History: Bipolar, Depression Smoking Status: Current every day smoker Past Alcohol Use History: None Reported Past Drug Use History: None Reported General Exam Limitations: no limitations General appearance: alert, in no apparent distress Head exam: Present: atraumatic, normocephalic Eye exam: Present: normal appearance. Absent: scleral icterus, conjunctival injection Respiratory exam: Present: normal lung sounds bilaterally. Absent: respiratory distress, wheezes, rales, rhonchi, stridor Cardiovascular Exam: Present: regular rate, normal rhythm, normal heart sounds. Absent: systolic murmur, diastolic murmur, rubs, gallop GI/Abdominal exam: Present: soft. Absent: distended, tenderness, guarding, rebound, rigid, mass Extremities exam: Present: normal inspection, normal capillary refill. Absent: pedal edema, calf tenderness Back exam: Present: normal inspection. Absent: CVA tenderness (R), CVA tenderness (L) Neurological exam: Present: alert Skin exam: Present: warm, dry, intact, normal color. Absent: rash Course Vital Signs 05/01/21 05/02/21 05/02/21 23:45 02:09 04:00 Temperature 97.8 F Pulse Rate 74 59 L 62 Respiratory 18 18 22 Rate Blood Pressure 123/71 115/73 127/80 O2 Sat by Pulse 99 94 L 95 Oximetry EKG Findings - EKG Results: EKG: interpreted by TED SCHULZ, sinus rhythm (Rate 72 bpm), normal axis, normal QRS, normal ST/T - [place], Pacemaker, Normal: Normal tracing: normal tracing Medical Decision Making - Lab Data Lab Results 05/01/21 Range/Units 23:47 Coronavirus (PCR) Detected A (Not Detectd) Disposition Clinical Impression: COVID-19, Syncope Disposition: HOME SELF-CARE Condition: Good Instructions (If sedation given, give patient instructions): Coronavirus Disease 2019 (COVID-19), Syncope (ED) Is patient prescribed a controlled substance at d/c from ED?: No Referrals: Sandrine Murray DO [Primary Care Provider] - 1-2 days
[2021-05-02] MEDS ORDERED: SODIUM CHLORIDE 0.9% 50 ML IVPB ONE (02:15)
[2021-05-02] MEDS ORDERED: CASIRIVIMAB (REGN10933) (EUA) 600 MG, IMDEVIMAB (REGN10987) (EUA) 600 MG in SODIUM CHLO... IVPB ONE (02:15)
[2021-05-02 04:02] VITALS: BP 127/80; PULSE 62; RESP 22
== END 2021-05-02 04:01 | disposition home or self-care (01) ==
LOC: EC 23:07
DX: U07.1 COVID-19 (principal); R55 Syncope and collapse; I10 Essential (primary) hypertension; F31.9 Bipolar disorder, unspecified; F17.200 Nicotine dependence, unspecified, uncomplicated
CPT/HCPCS: 99284; 93005; 87635; 71046; Q0243